=== PATIENT | female | born 2005 | race Hispanic/Latino ===

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

== ENCOUNTER 2023-11-11 23:00 | Emergency (ER) | payer SELFPAY ==
[~2023-11-11] VITALS: Ht 157.5 cm; Wt 80.0 kg
[~2023-11-11 23:00] MED LIST changes: +JANUVIA50 MG PO; +KEFLEX500 MG PO; +METFORMIN HCL500 M1 PO
[2023-11-11 23:14] VITALS: BP 128/85
[2023-11-11] MEDS ORDERED: SODIUM CHLORIDE 0.9% 1,000 ML IV STA (23:22)
[2023-11-11] MEDS ORDERED: KETOROLAC TROMETHAMINE 30 MG/ML SDV IV ONE (23:25)
[2023-11-11 23:30] VITALS: BP 125/77
[2023-11-11] MEDS ORDERED: ACETAMINOPHEN 500 MG TAB PO ONE (23:30)
[2023-11-11] MEDS ORDERED: traMADol HCL 50 MG/TAB PO ONE (23:30)
[2023-11-11 23:34] LABS: URINE BILIRUBIN - DIPSTICK Negative (NEGATIVE); URINE BLOOD DIPSTICK Negative (NEGATIVE); URINE GLUCOSE - DIPSTICK 250 mg/dL (NEGATIVE); URINE KETONE Negative (NEGATIVE); URINE LEUK ESTERASE Negative (NEGATIVE); URINE NITRITE - DIPSTICK Negative (Negative); URINE PH 6.5 (4.5-8.0); URINE PROTEIN - DIPSTICK Trace mg/dL (NEG-TRACE); URINE SPECIFIC GRAVITY 1.025; URINE UROBILINOGEN - DIPSTICK 0.2 E.U./dL (0.2)
[2023-11-11 23:37] LABS: URINE COLOR Yellow
[2023-11-11 23:38] LABS: BASO% 0.3 % (0-3); EOS% 3.6 % (0-8); HEMATOCRIT 36.9 % (37.0-47.0); HEMOGLOBIN 11.2 g/dl (12.0-16.0); IMMATURE GRANULOCYTES 0.2 % (0.0-5.0); LYMPH% 26.9 % (15-41); MEAN CELL VOLUME 81.6 fL CALC (80.0-100.0); MEAN CORPUSCULAR HGB 24.8 pG CALC (26.0-32.0); MEAN CORPUSCULAR HGB CONC 30.4 g/dL CAL (32.0-36.0); MONO% 5.4 % (2-13); NEUT% 63.6 % (42-76); RED BLOOD COUNT 4.52 mill/uL (4.20-5.60); RED CELL DISTRI WIDTH 14.4 % (11.5-15.5)
[2023-11-11 23:39] LABS: NEUT# 9.37 thou/uL (2.00-7.15)
[2023-11-11 23:46] LABS: CREATININE 0.5 mg/dL (0.5-1.0); POTASSIUM 4.4 mmol/l (3.5-5.1)
[2023-11-11 23:55] LABS: ALBUMIN 4.5 g/dL (3.2-5.0); BILIRUBIN, TOTAL 0.5 mg/dL (0.02-1.3); TOTAL PROTEIN 8.6 g/dL (6.3-8.2)
[2023-11-12] VITALS: BP 127/76
[2023-11-12] MEDS ORDERED: MIRALAX17 GM PO (02:00)
[2023-11-12] MEDS ORDERED: MAGNESIUM CITRATE 296 ML/BTL PO ONE (02:05)
[2023-11-12 02:24] VITALS: BP 127/76
== END 2023-11-12 02:24 | disposition home or self-care (01) | DRG 563 ==
LOC: ED 23:00
PROVIDERS: Family Medicine
DX: S39.011A Strain of muscle, fascia and tendon of abdomen, initial encounter (principal); K59.00 Constipation, unspecified; E11.9 Type 2 diabetes mellitus without complications; E66.9 Obesity, unspecified; T38.3X6A Underdosing of insulin and oral hypoglycemic [antidiabetic] drugs, initial encounter; Z91.128 Patient's intentional underdosing of medication regimen for other reason; X50.0XXA Overexertion from strenuous movement or load, initial encounter; Y93.E1 Activity, personal bathing and showering; Y92.002 Bathroom of unspecified non-institutional (private) residence as the place of occurrence of the external cause

== ENCOUNTER 2024-05-14 20:19 | Emergency (ER) | payer OTHER ==
[~2024-05-14] VITALS: Ht 157.5 cm; Wt 83.0 kg
[~2024-05-14 20:19] MED LIST changes: +MIRALAX17 GM PO
[2024-05-14 20:29] VITALS: BP 140/94
[2024-05-14] MEDS ORDERED: IBUPROFEN 800 MG/TAB PO ONE (20:50)
[2024-05-14] MEDS ORDERED: METHOCARBAMOL 500 MG/TAB PO ONE (20:50)
[2024-05-14 21:14] LABS: URINE BILIRUBIN - DIPSTICK Negative (NEGATIVE); URINE BLOOD DIPSTICK Trace-intact (NEGATIVE); URINE CLARITY Clear; URINE COLOR Yellow; URINE GLUCOSE - DIPSTICK >=1000 mg/dL (NEGATIVE); URINE KETONE Negative (NEGATIVE); URINE LEUK ESTERASE Negative (Negative); URINE NITRITE - DIPSTICK Negative (Negative); URINE PH 5.5 (4.5-8.0); URINE PROTEIN - DIPSTICK Negative (NEG-TRACE); URINE SPECIFIC GRAVITY 1.015; URINE UROBILINOGEN - DIPSTICK 0.2 E.U./dL (0.2)
[2024-05-14] MEDS ORDERED: METHOCARBAMOL750 MG PO (23:52)
[2024-05-14] MEDS ORDERED: IBUPROFEN600 MG PO (23:52)
[2024-05-15 00:02] VITALS: BP 140/94
== END 2024-05-15 00:11 | disposition home or self-care (01) | DRG 552 ==
LOC: ED 20:19
PROVIDERS: Emergency Medicine
DX: S16.1XXA Strain of muscle, fascia and tendon at neck level, initial encounter (principal); S29.012A Strain of muscle and tendon of back wall of thorax, initial encounter; E11.65 Type 2 diabetes mellitus with hyperglycemia; V40.6XXA Car passenger injured in collision with pedestrian or animal in traffic accident, initial encounter; T38.3X6A Underdosing of insulin and oral hypoglycemic [antidiabetic] drugs, initial encounter; Z91.148 Patient's other noncompliance with medication regimen for other reason